=== PATIENT | male | born 1975 | race Caucasian/White ===

== ENCOUNTER 2016-10-28 16:58 | Emergency (ER) | payer OTHER ==
--- NOTE | 2016-10-28 18:55 | RAD ---
CLAVICLE LEFT HISTORY: Fall with left clavicle pain. COMPARISONS: None. FINDINGS: 2 views of the left clavicle were performed demonstrating mostly intact osseous structures. There is no definitive fracture visualized. The AC joint is not widened. Included portions of the left lung field are within expected. IMPRESSION: 1. Negative views of the left clavicle.
== END 2016-10-28 19:24 | disposition home or self-care (01) ==
LOC: ED 16:58
DX: S40.012A Contusion of left shoulder, initial encounter (principal); X50.0XXA Overexertion from strenuous movement or load, initial encounter; Y93.A9 Activity, other involving cardiorespiratory exercise; Y92.838 Other recreation area as the place of occurrence of the external cause; Y99.0 Civilian activity done for income or pay